=== PATIENT | male | born 1990 | race Two or more races ===

== ENCOUNTER → 2017-07-01 | Outpatient (REF) | payer OTHER ==
[2017-07-03 14:11] LABS: QUANTIFERON GOLD TB Negative (Negative); TB Test (QFT) Antigen 0.03 IU/mL (.); TB Test (QFT) Mitogen >10.00 IU/mL (.); TB Test (QFT) Nil 0.03 IU/mL (.)
== END ==
LOC: M SFHCPLAZ 10:57
DX: M45.6 Ankylosing spondylitis lumbar region (principal)